=== PATIENT | male | born 2000 | race Asian ===

== ENCOUNTER 2021-08-13 19:41 | Emergency (ER) | payer OTHER ==
--- NOTE | 2021-08-13 20:43 | NUR ---
CALLED FOR TRIAGE, NOT IN WAITING ROOM
--- NOTE | 2021-08-13 21:23 | NUR ---
CALLED FOR TRIAGE, NOT IN WAITING ROOM
--- NOTE | 2021-08-13 21:45 | NUR ---
CALLED TO TRIAGE NOT IN WAITING ROOM
== END 2021-08-13 22:49 | disposition left against medical advice (07) ==
LOC: ER 19:50
DX: Z53.21 Procedure and treatment not carried out due to patient leaving prior to being seen by health care provider (principal)